=== PATIENT | male | born 1960 | race Caucasian/White ===

== ENCOUNTER 2017-11-03 09:58 | Outpatient (CLI) | payer SELFPAY ==
[2017-11-03 11:05] LABS: eGFR (African) > 60; eGFR (Non-African) > 60
== END 2017-11-03 10:05 ==
LOC: LAB 09:58
PROVIDERS: ATTEND Family Medicine
DX: E78.5 Hyperlipidemia, unspecified (principal)
CPT/HCPCS: 36415; 80053; 80061

== ENCOUNTER 2018-03-10 09:07 | Outpatient (CLI) | payer SELFPAY ==
--- NOTE | 2018-03-10 18:35 | Diagnostic Imaging Report ---
MILKA GARCIA [facility] [id number] [facility] [address] [address] Report Submission Date: Mar 10, 2018 9:52:07 AM CDT Patient Study Name: IVÁN BENAVIDEZ Date: Mar 10, 2018 9:34:00 AM CDT Modality Type: CT\SR Gender: M Description: CT BRAIN W/O CONTRAST : 58 Institution: [facility] Physician: MILKA GARCIA Head CT without contrast History: Headaches for a year Technique: Axial images were obtained from the skullbase to the vertex without IV contrast. Findings: The ventricular system is normal in size and configuration. There is normal parenchymal attenuation. There is no positive mass effect or intra/ extra-axial hemorrhage. Visualized paranasal sinuses and mastoid air cells are clear. The calvarium is intact. Impression: No intracranial abnormality. Electronically signed on Mar 10, 2018 9:52:07 AM CDT by: Courtney MARIN
== END 2018-03-10 13:27 ==
LOC: RAD 09:07
PROVIDERS: ATTEND Family Medicine
DX: R51 Headache (principal)
CPT/HCPCS: 70450